=== PATIENT | female | born 1985 | race Caucasian/White ===

== ENCOUNTER 2017-02-03 11:36 | Emergency (ER) | payer SELFPAY ==
[2017-02-03] MEDS ORDERED: Sodium Chloride 0.9% 10 ML Syringe FLUSH PRN (12:20)
[2017-02-03] MEDS ORDERED: Sodium Chloride 0.9% 1,000 ML IV ONE ×2 (12:20→13:36)
[2017-02-03] MEDS ORDERED: Sodium Chloride 0.9% 2.5 ML Syringe FLUSH PRN (12:20)
[2017-02-03] MEDS ORDERED: Famotidine 20 MG/2 ML SDV IVPUSH ONE (12:20)
[2017-02-03] MEDS ORDERED: Ondansetron 4 MG/2 ML SDV IVPUSH ONE (12:20)
--- NOTE | 2017-02-03 12:22 | EDM.PDOC ---
ED HPI GENERAL MEDICAL PROBLEM - General Chief Complaint: General Stated Complaint: VOMITING() Time Seen by Provider: 02/03/17 12:13 - History of Present Illness INITIAL COMMENTS - FREE TEXT/NARRATIVE: HISTORY AND PHYSICAL: History of present illness: The patient is a 31-year-old female who is a 2 para 1000 who had a demise and whose LMP was 8/16 and presents at an estimated gestational age of 7 weeks 2 days with nausea and vomiting for the last over 2 weeks and with some diarrhea over the last 2 days. She has abdominal pain mostly from the vomiting but is not pelvic pain and she has had no vaginal bleeding. He said she 's been trying sips of fluids in small bites and is not sure if she's keeping anything down. She went for an initial evaluation at [facility] and was diagnosed with the end of December and has appointment with them on February 16. She has no GI or history and has no flank pain or urinary complaints. Patient says she feels very thirsty but cannot keep anything down. Review of systems: As per history of present illness and below otherwise all systems reviewed and negative. Past medical history: As per history of present illness and as reviewed below otherwise noncontributory. Surgical history: As per history of present illness and as reviewed below otherwise noncontributory. Social history: No reported history of drug or alcohol abuse. Family history: As per history of present illness and as reviewed below otherwise noncontributory. Physical exam: Gen.: Well-developed mildly overweight female who is nontoxic and vital signs have been reviewed by me. She is nontoxic appearing HEENT: Atraumatic, normocephalic, pupils reactive, negative for conjunctival pallor or scleral icterus, mucous membranes tacky, throat clear, neck supple, nontender, trachea midline. Lungs: Clear to auscultation, breath sounds equal bilaterally, chest nontender. Heart: S1S2, regular rate and rhythm no overt murmurs Abdomen: Soft, nondistended, nontender. NABS Negative for costovertebral tenderness. Pelvis: Stable nontender. Genitourinary: Deferred. Rectal: Deferred. Extremities: Atraumatic, negative for cords or calf pain. Neurovascular unremarkable. Neuro: Awake, alert, oriented. Cranial nerves II through XII unremarkable. Cerebellum unremarkable. Motor and sensory unremarkable throughout. Exam nonfocal. Diagnostics: CBC CMP UA magnesium level serum quantitative hCG Therapeutics: IV fluids Pepcid Zofran 1345: Patient is feeling better and I've given her a popsicle. We will hang another liter of IV fluids and once I see the quantitative hCG I will discuss disposition home with medications with her OB Cassandra 1431: Case was discussed with the OB maintenance mechanic telephone for [facility], Dr. Harper; she is aware of the case and recommend stay clean just and if that is not working Zofran for home. Patient is aware of dietary restrictions and need to call and check in on Monday and reasons to return to the ED Impression: Hyperemesis gravidarum Definitive disposition and diagnosis as appropriate pending reevaluation and review of above. 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 ED EXAM, GENERAL - Physical Exam Exam: See Below (See dictation) Course - Vital Signs Last Recorded V/S: Last Vital Signs Temp 36.7 C 02/03/17 13:00 Pulse 79 02/03/17 13:42 Resp 18 02/03/17 13:00 BP 117/59 L 02/03/17 13:42 Pulse Ox 98 02/03/17 13:00 - Orders/Labs/Meds Orders: Active Orders 24 hr Category Date Time Status Sodium Chloride 0.9% [Saline Flush] Med 02/03/17 12:20 Active 10 ml FLUSH ASDIRECTED PRN Sodium Chloride 0.9% [Saline Flush] Med 02/03/17 12:20 Active 2.5 ml FLUSH ASDIRECTED PRN Saline Lock Insert [OM.PC] Stat Oth 02/03/17 12:18 Ordered Medication Orders Sodium Chloride (Saline Flush) 10 ml FLUSH ASDIRECTED PRN PRN Reason: Keep Vein Open Last Admin: 02/03/17 12:35 Dose: 10 ml Sodium Chloride (Saline Flush) 2.5 ml FLUSH ASDIRECTED PRN PRN Reason: Keep Vein Open Last Admin: 02/03/17 12:36 Dose: 2.5 ml Labs: Laboratory Tests 02/03/17 02/03/17 02/03/17 Range/Units 12:35 12:35 12:55 WBC 13.23 H (4.0-11.0) K/uL RBC 4.49 (4.30-5.90) M/uL Hgb 13.7 (12.0-16.0) g/dL Hct 40.0 (36.0-46.0) % MCV 89.1 (80.0-98.0) fL MCH 30.5 (27.0-32.0) pg MCHC 34.3 (31.0-37.0) g/dL RDW Std Deviation 41.3 (28.0-62.0) fl RDW Coeff of Russel 13 (11.0-15.0) % Plt Count 264 (150-400) K/uL MPV 10.20 (7.40-12.00) fL Neut % (Auto) 95.3 H (48.0-80.0) % Lymph % (Auto) 2.8 L (16.0-40.0) % [place] % (Auto) 1.7 (0.0-15.0) % Eos % (Auto) 0.1 (0.0-7.0) % Baso % (Auto) 0.1 (0.0-1.5) % Neut # (Auto) 12.6 H (1.4-5.7) K/uL Lymph # (Auto) 0.4 L (0.6-2.4) K/uL [place] # (Auto) 0.2 (0.0-0.8) K/uL Eos # (Auto) 0.0 (0.0-0.7) K/uL Baso # (Auto) 0.0 (0.0-0.1) K/uL Nucleated RBC % 0.0 /100WBC Nucleated RBCs # 0 K/uL Sodium 137 (136-146) mmol/L Potassium 3.6 (3.5-5.1) mmol/L Chloride 105 (98-110) mmol/L Carbon Dioxide 22 (21-31) mmol/L BUN 9 (6.0-23.0) mg/dL Creatinine 0.6 (0.6-1.5) mg/dL Est Cr Clr Drug Dosing 118.39 mL/min Estimated GFR (MDRD) > 60.0 ml/min Glucose 101 (60-110) mg/dL Calcium 8.8 (8.8-10.8) mg/dL Magnesium 1.2 L (1.5-2.3) mEq/L Total Bilirubin 0.8 (0.1-1.5) mg/dL AST 17 (5-40) IU/L ALT 31 (8-54) IU/L Alkaline Phosphatase 58 (40-150) Total Protein 6.9 (6.0-8.0) g/dL Albumin 3.7 (3.5-5.0) g/dL Globulin 3.2 (2.0-3.5) g/dL Albumin/Globulin Ratio 1.2 L (1.3-2.8) HCG, Quant 62698.0 mIU/mL Urine Color DARK YELLOW Urine Appearance CLEAR Urine pH 6.5 (5.0-8.0) Ur Specific [place] 1.025 (1.001-1.035) Urine Protein TRACE (NEGATIVE) mg/dL Urine Glucose (UA) NEGATIVE (NEGATIVE) mg/dL Urine Ketones >=80 (NEGATIVE) mg/dL Urine Occult Blood TRACE-INTACT (NEGATIVE) Urine Nitrite NEGATIVE (NEGATIVE) Urine Bilirubin SMALL H (NEGATIVE) Urine Ictotest NEGATIVE Urine Urobilinogen 0.2 (<2.0) EU/dL Ur Leukocyte Esterase NEGATIVE (NEGATIVE) Urine RBC 5-7 (0-2/HPF) Urine WBC 0-1 (0-5/HPF) Ur Epithelial Cells FEW (NONE-FEW) Urine Bacteria RARE (NEGATIVE) Urine Mucus LIGHT (NONE-MOD) Meds: Medications Generic Name Dose Route Start Last Admin Trade Name Freq PRN Reason Stop Dose Admin Sodium Chloride 10 ml 02/03/17 12:20 02/03/17 12:35 Saline Flush FLUSH 10 ml ASDIRECTED PRN Administration Keep Vein Open Sodium Chloride 2.5 ml 02/03/17 12:20 02/03/17 12:36 Saline Flush FLUSH 2.5 ml ASDIRECTED PRN Administration Keep Vein Open Discontinued Medications Generic Name Dose Route Start Last Admin Trade Name Freq PRN Reason Stop Dose Admin Famotidine 20 mg 02/03/17 12:20 02/03/17 12:44 Pepcid IVPUSH 02/03/17 12:21 20 mg ONETIME ONE Administration Sodium Chloride 1,000 mls @ 999 mls/hr 02/03/17 12:20 02/03/17 12:40 Normal Saline IV 02/03/17 13:20 999 mls/hr STAT ONE Administration Sodium Chloride 1,000 mls @ 999 mls/hr 02/03/17 13:36 02/03/17 13:40 Normal Saline IV 02/03/17 14:36 999 mls/hr STAT ONE Administration Ondansetron HCl 4 mg 02/03/17 12:20 02/03/17 12:46 Zofran IVPUSH 02/03/17 12:21 4 mg ONETIME ONE Administration Departure - Departure Time of Disposition: 14:38 Disposition: Home, Self-Care 01 Condition: Fair Clinical Impression: Hyperemesis gravidarum - Discharge Information Referrals: PCP,None [Primary Care Provider] - Forms: ED Department Discharge Additional Instructions: The following information is given to patients seen in the emergency department who are being discharged to home. This information is to outline your options for follow-up care. We provide all patients seen in our emergency department with a follow-up referral. The need for follow-up, as well as the timing and circumstances, are variable depending upon the specifics of your emergency department visit. If you don't have a primary care physician on staff, we will provide you with a referral. We always advise you to contact your personal physician following an emergency department visit to inform them of the circumstance of the visit and for follow-up with them and/or the need for any referrals to a consulting specialist. The emergency department will also refer you to a specialist when appropriate. This referral assures that you have the opportunity for followup care with a specialist. All of these measure are taken in an effort to provide you with optimal care, which includes your followup. Under all circumstances we always encourage you to contact your private physician who remains a resource for coordinating your care. When calling for followup care, please make the office aware that this follow-up is from your recent emergency room visit. If for any reason you are refused follow-up, please contact the [facility] emergency department at and ask to speak to the emergency department charge nurse. [address] [address] Eat small bites of crackers and toast as well as sips of fluids as we discussed. Please use Diglegis for nausea and vomiting and move onto the Zofran if you continue to vomit. Please call and discuss your status with the OB M.D. on Monday and return to ER as needed and as discussed - My Orders Last 24 Hours: My Active Orders 02/03/17 12:18 Saline Lock Insert [OM.PC] Stat 02/03/17 12:20 Sodium Chloride 0.9% [Saline Flush] 10 ml FLUSH ASDIRECTED PRN Sodium Chloride 0.9% [Saline Flush] 2.5 ml FLUSH ASDIRECTED PRN - Assessment/Plan Last 24 Hours: My Active Orders 02/03/17 12:18 Saline Lock Insert [OM.PC] Stat 02/03/17 12:20 Sodium Chloride 0.9% [Saline Flush] 10 ml FLUSH ASDIRECTED PRN Sodium Chloride 0.9% [Saline Flush] 2.5 ml FLUSH ASDIRECTED PRN
[2017-02-03 13:20] LABS: CHLORIDE,CL 105 mmol/L (98-110); SODIUM,NA 137 mmol/L (136-146)
[2017-02-03 14:56] VITALS: BP 135/61
== END 2017-02-03 14:51 | disposition home or self-care (01) ==
LOC: MW.ED 11:36
DX: O21.0 Mild hyperemesis gravidarum (principal); O99.331 Smoking (tobacco) complicating pregnancy, first trimester; F17.210 Nicotine dependence, cigarettes, uncomplicated; Z88.6 Allergy status to analgesic agent; Z88.5 Allergy status to narcotic agent; Z3A.01 Less than 8 weeks gestation of pregnancy
CPT/HCPCS: 36415; 80053; 81001; 83735; 84702; 85025; 96361; 96374; 96375; 99284; J2405; J7040; 99283

== ENCOUNTER 2017-02-22 20:06 | Emergency (ER) | payer SELFPAY ==
[2017-02-22] MEDS ORDERED: Sodium Chloride 0.9% 1,000 ML IV ONE (20:19)
[2017-02-22] MEDS ORDERED: Ondansetron 4 MG/2 ML SDV IVPUSH ONE (20:19)
--- NOTE | 2017-02-22 20:22 | EDM.PDOC ---
ED HPI GENERAL MEDICAL PROBLEM - General Chief Complaint: Gastrointestinal Problem Stated Complaint: 10 WEEKS/VOMITING/DIARRHEA Time Seen by Provider: 02/22/17 20:16 - History of Present Illness INITIAL COMMENTS - FREE TEXT/NARRATIVE: HISTORY AND PHYSICAL: History of present illness: Patient 31-year-old female presents with history of ten-week intrauterine and hyperemesis patient states she's had a similar episode 1 week prior but that today's episode which she's had intractable vomiting is also some associated diarrhea she denies vaginal bleeding and abdominal pain vaginal discharge or urinary symptoms or other complaints she's has concerns of dehydration. Review of systems: As per history of present illness and below otherwise all systems reviewed and negative. Past medical history: As per history of present illness and as reviewed below otherwise noncontributory. Surgical history: As per history of present illness and as reviewed below otherwise noncontributory. Social history: No reported history of drug or alcohol abuse. Family history: As per history of present illness and as reviewed below otherwise noncontributory. Physical exam: HEENT: Atraumatic, normocephalic, pupils reactive, negative for conjunctival pallor or scleral icterus, mucous membranes dry throat clear, neck supple, nontender, trachea midline. Lungs: Clear to auscultation, breath sounds equal bilaterally, chest nontender. Heart: S1S2, regular, negative for clicks, rubs, or JVD. Abdomen: Soft, nondistended, nontender. Negative for masses or hepatosplenomegaly. Negative for costovertebral tenderness. Pelvis: Stable nontender. Genitourinary: Deferred. Rectal: Deferred. Extremities: Atraumatic, negative for cords or calf pain. Neurovascular unremarkable. Neuro: Awake, alert, oriented. Cranial nerves II through XII unremarkable. Cerebellum unremarkable. Motor and sensory unremarkable throughout. Exam nonfocal. Diagnostics: CBC CMP amylase lipase stool for C&S O&P C. difficile UA Therapeutics: Normal saline 1 L bolus Zofran 4 mg IV Impression: #1 first trimester #2 hyperemesis #3 diarrhea #4 dehydration Definitive disposition and diagnosis as appropriate pending reevaluation and review of above. 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 ED EXAM, GENERAL - Physical Exam Exam: See Below (See dictation) Course - Vital Signs Last Recorded V/S: Last Vital Signs Temp 36.5 C 02/22/17 20:25 Pulse 88 02/22/17 20:25 Resp 18 02/22/17 20:25 BP 105/66 02/22/17 20:25 Pulse Ox 97 02/22/17 20:25 - Orders/Labs/Meds Orders: Active Orders 24 hr Category Date Time Status CDIFF TOX A+B [OP] Stat Lab 02/22/17 20:19 Uncollected CULTURE STOOL + CAMPY+SHIGATOX [RM] Stat Lab 02/22/17 20:19 Uncollected UA W/MICROSCOPIC [URIN] Stat Lab 02/22/17 21:20 Received Labs: Laboratory Tests 02/22/17 02/22/17 Range/Units 20:29 20:29 WBC 11.90 H (4.0-11.0) K/uL RBC 4.16 L (4.30-5.90) M/uL Hgb 12.8 (12.0-16.0) g/dL Hct 36.9 (36.0-46.0) % MCV 88.7 (80.0-98.0) fL MCH 30.8 (27.0-32.0) pg MCHC 34.7 (31.0-37.0) g/dL RDW Std Deviation 41.3 (28.0-62.0) fl RDW Coeff of Russel 13 (11.0-15.0) % Plt Count 238 (150-400) K/uL MPV 10.10 (7.40-12.00) fL Neut % (Auto) 89.8 H (48.0-80.0) % Lymph % (Auto) 6.0 L (16.0-40.0) % [place] % (Auto) 4.0 (0.0-15.0) % Eos % (Auto) 0.1 (0.0-7.0) % Baso % (Auto) 0.1 (0.0-1.5) % Neut # (Auto) 10.7 H (1.4-5.7) K/uL Lymph # (Auto) 0.7 (0.6-2.4) K/uL [place] # (Auto) 0.5 (0.0-0.8) K/uL Eos # (Auto) 0.0 (0.0-0.7) K/uL Baso # (Auto) 0.0 (0.0-0.1) K/uL Nucleated RBC % 0.0 /100WBC Nucleated RBCs # 0 K/uL Sodium 133 L (136-146) mmol/L Potassium 3.0 L (3.5-5.1) mmol/L Chloride 104 (98-110) mmol/L Carbon Dioxide 22 (21-31) mmol/L BUN 6 (6.0-23.0) mg/dL Creatinine 0.6 (0.6-1.5) mg/dL Est Cr Clr Drug Dosing 118.39 mL/min Estimated GFR (MDRD) > 60.0 ml/min Glucose 94 (60-110) mg/dL Calcium 8.3 L (8.8-10.8) mg/dL Total Bilirubin 0.7 (0.1-1.5) mg/dL AST 13 (5-40) IU/L ALT 19 (8-54) IU/L Alkaline Phosphatase 50 (40-150) Total Protein 6.3 (6.0-8.0) g/dL Albumin 3.4 L (3.5-5.0) g/dL Globulin 2.9 (2.0-3.5) g/dL Albumin/Globulin Ratio 1.2 L (1.3-2.8) Amylase 28 (10-90) U/L Lipase 9 (7-80) U/L Meds: Medications Discontinued Medications Generic Name Dose Route Start Last Admin Trade Name Anila PRN Reason Stop Dose Admin Sodium Chloride 1,000 mls @ 999 mls/hr 02/22/17 20:19 02/22/17 20:38 Normal Saline IV 02/22/17 21:19 999 mls/hr STAT ONE Administration Ondansetron HCl 4 mg 02/22/17 20:19 02/22/17 20:39 Zofran IVPUSH 02/22/17 20:20 4 mg ONETIME ONE Administration Potassium Chloride 40 meq 02/22/17 21:40 Klor-Con M20 PO 02/22/17 21:41 ONETIME ONE Departure - Departure Time of Disposition: 21:43 Disposition: Home, Self-Care 01 Condition: Good Clinical Impression: Gastroenteritis, Dehydration, First trimester , Hyperemesis arising during , Hypokalemia - Discharge Information Referrals: PCP,None [Primary Care Provider] - Forms: ED Department Discharge Additional Instructions: The following information is given to patients seen in the emergency department who are being discharged to home. This information is to outline your options for follow-up care. We provide all patients seen in our emergency department with a follow-up referral. The need for follow-up, as well as the timing and circumstances, are variable depending upon the specifics of your emergency department visit. If you don't have a primary care physician on staff, we will provide you with a referral. We always advise you to contact your personal physician following an emergency department visit to inform them of the circumstance of the visit and for follow-up with them and/or the need for any referrals to a consulting specialist. The emergency department will also refer you to a specialist when appropriate. This referral assures that you have the opportunity for followup care with a specialist. All of these measure are taken in an effort to provide you with optimal care, which includes your followup. Under all circumstances we always encourage you to contact your private physician who remains a resource for coordinating your care. When calling for followup care, please make the office aware that this follow-up is from your recent emergency room visit. If for any reason you are refused follow-up, please contact the [facility] emergency department at and asked to speak to the emergency department charge nurse Push fluids clear liquids as directed avoid dairy 72 hours banana twice daily as discussed follow-up DIRECTOR LONG TERM CARE 24-48 hours and return as needed as discussed[] - My Orders Last 24 Hours: My Active Orders 02/22/17 20:19 CDIFF TOX A+B [OP] Stat CULTURE STOOL + CAMPY+SHIGATOX [RM] Stat 02/22/17 21:20 UA W/MICROSCOPIC [URIN] Stat - Assessment/Plan Last 24 Hours: My Active Orders 02/22/17 20:19 CDIFF TOX A+B [OP] Stat CULTURE STOOL + CAMPY+SHIGATOX [RM] Stat 02/22/17 21:20 UA W/MICROSCOPIC [URIN] Stat
[2017-02-22 20:55] LABS: CHLORIDE,CL 104 mmol/L (98-110); SODIUM,NA 133 mmol/L (136-146)
[2017-02-22] MEDS ORDERED: Potassium Chloride 20 MEQ Tab.ER PO ONE (21:40)
[2017-02-22 22:02] VITALS: BP 119/56
== END 2017-02-22 22:00 | disposition home or self-care (01) ==
LOC: MW.ED 20:06
DX: O21.1 Hyperemesis gravidarum with metabolic disturbance (principal); O99.611 Diseases of the digestive system complicating pregnancy, first trimester; K52.9 Noninfective gastroenteritis and colitis, unspecified; O99.331 Smoking (tobacco) complicating pregnancy, first trimester; F17.210 Nicotine dependence, cigarettes, uncomplicated; Z3A.10 10 weeks gestation of pregnancy
CPT/HCPCS: 36415; 80053; 81001; 82150; 83690; 85025; 96361; 96374; 99283; A9270; J2405; J7040; 99282

== ENCOUNTER 2017-08-23 09:38 | Inpatient (IN) | payer MEDICAID ==
[2017-08-23] MEDS ORDERED: Sodium Chloride 0.9% 2.5 ML Syringe FLUSH PRN (10:35)
[2017-08-23] MEDS ORDERED: Sodium Chloride 0.9% 10 ML Syringe FLUSH PRN (10:35)
[2017-08-23] MEDS ORDERED: Oxytocin/0.9 % Sodium Chloride 30 UNIT/500 ML BAG IV SCH (10:45)
[2017-08-23] MEDS ORDERED: Citric Acid/Sodium Citrate Solution 30 ML Cup PO SCH (10:45)
[2017-08-23] MEDS: Lactated Ringers 1,000 ML IV SCH ×2 (11:01→11:38)
--- NOTE | 2017-08-23 11:13 | PCM.LDHP ---
L&D History of Present Illness - General Date of Service: 08/23/17 Admit Problem/Dx: Patient Status Order with Admit Dx/Problem 08/23/17 10:36 Patient Status [ADT] Routine Admission Diagnosis/Problem Admission Diagnosis/Problem - planned Source of Information: Patient History Limitations: Reports: No Limitations - History of Present Illness Improves with: Reports: None Worsens with: Reports: None Associated Symptoms: Reports: N - Related Data Allergies/Adverse Reactions: Allergies Allergy/AdvReac Type Severity Reaction Status Date / Time acetaminophen [From Vicodin] Allergy Itching Verified 08/22/17 11:48 hydrocodone [From Vicodin] Allergy Itching Verified 08/22/17 11:48 Home Medications: Home Meds Vits #93/Iron Fum/FA [ Formula Tablet] 1 cap PO DAILY 02/03/17 [History] risperiDONE [Risperdal] 0.5 mg PO BID 02/03/17 [History] Past Medical History HEENT History: Reports: None Respiratory History: Reports: None Gastrointestinal History: Reports: GERD Genitourinary History: Reports: None 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: , Other (See Below) Other OB/BYN History: Musculoskeletal History: Reports: Arthritis, Back Pain, Chronic Psychiatric History: Reports: Anxiety, Bipolar, Depression Endocrine/Metabolic History: Reports: Obesity/BMI 30+ - Past Surgical History Head Surgeries/Procedures: Reports: None HEENT Surgical History: Reports: Tonsillectomy Female Surgical History: Reports: Section Social & Family History - Family History Family Medical History: Noncontributory - Tobacco Use Smoking Status *Q: Former Smoker Years of Tobacco use: 10 Packs/Tins Daily: 0.3 Used Tobacco, but Quit: Yes Month/Year Tobacco Last Used: quit 4 weeks ago Second Hand Smoke Exposure: No - Caffeine Use Caffeine Use: Reports: Coffee - Recreational Drug Use Recreational Drug Use: Yes Drug Use in Last 12 Months: Yes Recreational Drug Type: Reports: Marijuana/Hashish Recreational Drug Use Frequency: Not Used In Over 2 Months H&P Review of Systems - Review of Systems: Review Of Systems: See Below General: Reports: No Symptoms HEENT: Reports: No Symptoms Pulmonary: Reports: No Symptoms Cardiovascular: Reports: No Symptoms Gastrointestinal: Reports: No Symptoms Genitourinary: Reports: No Symptoms Musculoskeletal: Reports: No Symptoms Skin: Reports: No Symptoms Psychiatric: Reports: No Symptoms Neurological: Reports: No Symptoms Hematologic/Lymphatic: Reports: No Symptoms Immunologic: Reports: No Symptoms L&D Exam - Exam Exam: See Below - Vital Signs Weight: 104.78 kg - OB Specific Fundal Height In cm: 37 Contraction Intensity: Mild Movement: Active Heart Tones: Present Presentation: Vertex - Exam General: Alert, Oriented HEENT: PERRLA, Conjunctiva Clear, EACs Clear, EOMI, Hearing Intact, Mucosa Moist & [place], Nares Patent, Normal Nasal Septum, Posterior Pharynx Clear, TMs Clear Neck: Supple, Trachea Midline Lungs: Clear to Auscultation, Normal Respiratory Effort Cardiovascular: Regular Rate, Regular Rhythm GI/Abdominal Exam: Normal Bowel Sounds, Soft, Non-Tender, No Organomegaly, No Distention, No Abnormal Bruit, No Mass, Pelvis Stable Rectal Exam: Normal Exam, Normal Rectal Tone Genitourinary: Normal external exam, Normal bimanual exam, Normal speculum exam Back Exam: Normal Inspection, Full Range of Motion Extremities: Normal Inspection, Normal Range of Motion, Non-Tender, No Pedal Edema, Normal Capillary Refill Skin: Warm, Dry, Intact Neurological: Cranial Nerves Intact, Reflexes Equal Bilateral Psychiatric: Alert, Normal Affect, Normal Mood Problem List Initiated/Reviewed/Updated: Yes Orders Last 24hrs: Active Orders 24 hr Category Date Time Status Patient Status [ADT] Routine ADT 08/23/17 10:36 Active Notify Provider Vital Signs [RC] PRN Care 08/23/17 10:37 Active Procedure Site Prep Instruct [RC] ASDIRECTED Care 08/23/17 10:36 Active Up ad Sharmin [RC] ASDIRECTED Care 08/23/17 10:36 Active Verify Patient Consent Obtain [RC] ASDIRECTED Care 08/23/17 10:36 Active Vital Signs [RC] PER UNIT ROUTINE Care 08/23/17 10:36 Active CBC W/O DIFF,HEMOGRAM [HEME] Routine Lab 08/23/17 10:55 Received TYPE AND SCREEN [BBK] Routine Lab 08/23/17 10:55 Received Citric Acid/Sodium Citrate [Bicitra Solution] Med 08/23/17 10:45 Active 30 ml PO .ONCE Lactated Ringers [Ringers, Lactated] 1,000 ml Med 08/23/17 10:45 Active IV .BOLUS Oxytocin/0.9 % Sodium Chloride [Oxytocin 30 Unit/500 ML Med 08/23/17 10:45 Active -NS] 30 unit in 500 ml IV TITRATE Sodium Chloride 0.9% [Saline Flush] Med 08/23/17 10:35 Active 10 ml FLUSH ASDIRECTED PRN Sodium Chloride 0.9% [Saline Flush] Med 08/23/17 10:35 Active 2.5 ml FLUSH ASDIRECTED PRN ceFAZolin [Ancef] 2 gm Med 08/23/17 11:45 Active Premix Bag 1 bag IV ONETIME Peripheral IV Insertion Adult [OM.PC] Routine Oth 08/23/17 10:36 Ordered Schedule Procedure [COMM] Per Unit Routine Oth 08/23/17 10:36 Ordered Resuscitation Status Routine Resus Stat 08/23/17 10:35 Ordered Medication Orders Citric Acid/Sodium Citrate (Bicitra Solution) 30 ml PO .ONCE KATI Cefazolin Sodium/Dextrose 2 gm (/ Premix) 50 mls @ 100 mls/hr IV ONETIME ONE Stop: 08/23/17 12:14 Lactated Ringer's (Ringers, Lactated) 1,000 mls @ 500 mls/hr IV .BOLUS KATI Last Admin: 08/23/17 11:01 Dose: 500 mls/hr Oxytocin/Sodium Chloride (Oxytocin 30 Unit/500 Ml-Ns) 30 unit in 500 mls @ 250 mls/hr IV TITRATE KATI Sodium Chloride (Saline Flush) 10 ml FLUSH ASDIRECTED PRN PRN Reason: Keep Vein Open Sodium Chloride (Saline Flush) 2.5 ml FLUSH ASDIRECTED PRN PRN Reason: Keep Vein Open Assessment/Plan Comment:: Tongue patient (39 Wks) is admitted for elective repeat section
[2017-08-23] MEDS ORDERED: Oxytocin/0.9 % Sodium Chloride 30 UNIT/500 ML BAG ONE (11:23)
[2017-08-23] MEDS ORDERED: ePHEDrine 50 MG/ML SDV ONE (11:35)
[2017-08-23] MEDS ORDERED: ceFAZolin/Dextrose,Iso-Osmotic 2 GM/50 ML Duplex Bag IV ONE (11:35)
[2017-08-23] MEDS ORDERED: Ondansetron 4 MG/2 ML SDV ONE (11:35)
[2017-08-23] MEDS ORDERED: Morphine PF 1 MG/ML Amp ONE (11:36)
--- NOTE | 2017-08-23 11:39 | PCM.PREANE ---
Preanesthetic Assessment - Anesthesia/Transfusion/Family Hx Anesthesia History: Prior Anesthesia Without Reaction Family History of Anesthesia Reaction: No Transfusion History: No Prior Transfusion(s) - Review of Systems General: No Symptoms Pulmonary: No Symptoms Cardiovascular: No Symptoms Gastrointestinal: No Symptoms Neurological: No Symptoms Other: Reports: None - Physical Assessment NPO Status Date: 08/22/17 Height: 1.63 m Weight: 104.78 kg ASA Class: 2 Mental Status: Alert & Oriented x3 Airway Class: Mallampati = 2 Dentition: Reports: Normal Dentition ROM/Head Extension: Full Lungs: Clear to Auscultation, Normal Respiratory Effort Cardiovascular: Regular Rate, Regular Rhythm - Lab Values: Laboratory Last Values WBC 12.10 K/uL (4.0-11.0) H 08/23/17 10:55 RBC 4.25 M/uL (4.30-5.90) L 08/23/17 10:55 Hgb 12.9 g/dL (12.0-16.0) 08/23/17 10:55 Hct 37.8 % (36.0-46.0) 08/23/17 10:55 MCV 88.9 fL (80.0-98.0) 08/23/17 10:55 MCH 30.4 pg (27.0-32.0) 08/23/17 10:55 MCHC 34.1 g/dL (31.0-37.0) 08/23/17 10:55 RDW Std Deviation 41.2 fl (28.0-62.0) 08/23/17 10:55 RDW Coeff of Russel 13 % (11.0-15.0) 08/23/17 10:55 Plt Count 274 K/uL (150-400) 08/23/17 10:55 MPV 11.10 fL (7.40-12.00) 08/23/17 10:55 Nucleated RBC % 0.0 /100WBC 08/23/17 10:55 Nucleated RBCs # 0 K/uL 08/23/17 10:55 - Allergies Allergies/Adverse Reactions: Allergies Allergy/AdvReac Type Severity Reaction Status Date / Time acetaminophen [From Vicodin] Allergy Itching Verified 08/22/17 11:48 hydrocodone [From Vicodin] Allergy Itching Verified 08/22/17 11:48 - Anesthesia Plan Pre-Op Medication Ordered: Antacids - Acknowledgements Anesthesia Type Planned: Spinal Pt an Appropriate Candidate for the Planned Anesthesia: Yes Alternatives and Risks of Anesthesia Discussed w Pt/Guardian: Yes Pt/Guardian Understands and Agrees with Anesthesia Plan: Yes PreAnesthesia Questionnaire HEENT History: Reports: None Respiratory History: Reports: None Gastrointestinal History: Reports: GERD Genitourinary History: Reports: None FINANCIAL REP History: Reports: , Other (See Below) Other OB/BYN History: Musculoskeletal History: Reports: Arthritis, Back Pain, Chronic Psychiatric History: Reports: Anxiety, Bipolar, Depression Endocrine/Metabolic History: Reports: Obesity/BMI 30+ - Infectious Disease History Infectious Disease History: Reports: Chicken Pox - Past Surgical History Head Surgeries/Procedures: Reports: None HEENT Surgical History: Reports: Tonsillectomy Female Surgical History: Reports: Section - SUBSTANCE USE Smoking Status *Q: Current Every Day Smoker Tobacco Use Within Last Twelve Months: Cigarettes Second Hand Smoke Exposure: Yes Recreational Drug Use History: Yes Recreational Drug Type: Reports: Marijuana/Hashish Recreational Drug Last Use: 06/20/2017 - HOME MEDS Home Medications: Home Meds Vits #93/Iron Fum/FA [ Formula Tablet] 1 cap PO DAILY 02/03/17 [History] risperiDONE [Risperdal] 0.5 mg PO BID 02/03/17 [History] - CURRENT (IN HOUSE) MEDS Current Meds: Current Medications Citric Acid/Sodium Citrate (Bicitra Solution) 30 ml PO .ONCE KATI Cefazolin Sodium/Dextrose 2 gm (/ Premix) 50 mls @ 100 mls/hr IV ONETIME ONE Stop: 08/23/17 12:14 Lactated Ringer's (Ringers, Lactated) 1,000 mls @ 500 mls/hr IV .BOLUS KATI Last Admin: 08/23/17 11:38 Dose: 500 mls/hr Oxytocin/Sodium Chloride (Oxytocin 30 Unit/500 Ml-Ns) 30 unit in 500 mls @ 250 mls/hr IV TITRATE KATI Sodium Chloride (Saline Flush) 10 ml FLUSH ASDIRECTED PRN PRN Reason: Keep Vein Open Sodium Chloride (Saline Flush) 2.5 ml FLUSH ASDIRECTED PRN PRN Reason: Keep Vein Open Discontinued Medications Cefazolin Sodium/Dextrose (Ancef) Confirm Administered Dose 2 gm IV .STK-MED ONE Stop: 08/23/17 11:36 Ephedrine Sulfate (Ephedrine Sulfate) Confirm Administered Dose 50 mg .ROUTE .STK-MED ONE Stop: 08/23/17 11:36 Oxytocin/Sodium Chloride (Oxytocin 30 Unit/500 Ml-Ns) Confirm Administered Dose 30 unit in 500 mls @ as directed .ROUTE .STK-MED ONE Stop: 08/23/17 11:24 Ondansetron HCl (Zofran) Confirm Administered Dose 4 mg .ROUTE .STK-MED ONE Stop: 08/23/17 11:36
[2017-08-23] MEDS ORDERED: Octyl 2-Cyanoacrylate 1 Tube ONE (11:42)
[2017-08-23] MEDS ORDERED: ceFAZolin 2 GM in Premix Bag 1 BAG IV ONE (11:45)
[2017-08-23] MEDS ORDERED: Phenylephrine/Normal Saline 100 MCG/ML 10 ML Syringe ONE (12:22)
[2017-08-23] MEDS ORDERED: fentaNYL 100 MCG/2 ML SDV IVPUSH PRN (12:48)
[2017-08-23] MEDS ORDERED: Acetaminophen/oxyCODONE 325-5 MG Tab PO PRN ×2 (12:48→12:59)
[2017-08-23] MEDS ORDERED: fentaNYL 100 MCG/2 ML SDV ONE (12:57)
[2017-08-23] MEDS ORDERED: diphenhydrAMINE 50 MG/ML SDV IVPUSH PRN (12:59)
[2017-08-23] MEDS ORDERED: Lanolin 100% Cream 7 GM Tube TOP PRN (12:59)
[2017-08-23] MEDS ORDERED: Bisacodyl 10 MG Supp RECTAL PRN (12:59)
[2017-08-23] MEDS ORDERED: Ondansetron 4 MG/2 ML SDV IV PRN (12:59)
[2017-08-23] MEDS ORDERED: Lactated Ringers 1,000 ML IV SCH (13:00)
--- NOTE | 2017-08-23 13:03 | PCM.OPNOTE ---
- General Post-Op/Procedure Note Date of Surgery/Procedure: 08/23/17 Operative Procedure(s): Repeat C/Section Pre Op Diagnosis: IUP 39+ wks previous C/section Post-Op Diagnosis: Same Anesthesia Technique: Spinal Primary Surgeon: Vito Ortiz Concert Promoter: Eveline Rodrigues EBL in mLs: 700 Complications: None Condition: Good
[2017-08-23] MEDS: Ketorolac 30 MG/ML SDV IVPUSH SCH ×2 (13:36→19:51)
--- NOTE | 2017-08-23 13:43 | PCM.POSTAN ---
POST ANESTHESIA ASSESSMENT - MENTAL STATUS Mental Status: Alert, Oriented - VITAL SIGNS Blood Pressure: 113/59 - RESPIRATORY Respiratory Status: Respiratory Rate WNL, Airway Patent, O2 Saturation Stable - CARDIOVASCULAR CV Status: Pulse Rate WNL, Blood Pressure Stable - GASTROINTESTINAL GI Status: No Symptoms - PAIN Pain Score: 0 (some carpal tunnel syndrome - preexisting) - POST OP HYDRATION Hydration Status: Adequate & Stable - OBSERVATIONS Free Text/Narrative:: Pt stable for discharge to OB
[2017-08-23] MEDS: Nalbuphine 10 MG/1 ML Vial IVPUSH PRN ×2 (14:13→18:10)
[2017-08-23] MEDS: Docusate Sodium 100 MG Cap PO SCH (22:20)
[2017-08-24] MEDS: Nalbuphine 10 MG/1 ML Vial IVPUSH PRN ×2 (01:17→07:38)
[2017-08-24] MEDS: Ketorolac 30 MG/ML SDV IVPUSH SCH ×3 (01:44→14:15)
--- NOTE | 2017-08-24 08:26 | PCM.PNPP ---
- General Info Date of Service: 08/24/17 Admission Dx/Problem (Free Text): Patient Status Order with Admit Dx/Problem 08/23/17 10:36 Patient Status [ADT] Routine Admission Diagnosis/Problem Admission Diagnosis/Problem - planned Functional Status: Reports: Pain Controlled, Tolerating Diet, Ambulating, Urinating - Review of Systems General: Reports: No Symptoms HEENT: Reports: No Symptoms Pulmonary: Reports: No Symptoms Cardiovascular: Reports: No Symptoms Gastrointestinal: Reports: No Symptoms Genitourinary: Reports: No Symptoms Musculoskeletal: Reports: No Symptoms Skin: Reports: No Symptoms Neurological: Reports: No Symptoms Psychiatric: Reports: No Symptoms - General Info Date of Service: 08/24/17 - Patient Data Vital Signs - Most Recent: Last Vital Signs Temp 36.9 C 08/24/17 04:05 Pulse 101 H 08/24/17 07:00 Resp 17 08/24/17 07:00 BP 138/78 08/24/17 07:00 Pulse Ox 95 08/24/17 07:00 Weight - Most Recent: 104.78 kg I&O - Last 24 Hours: Intake & Output 08/23/17 08/24/17 08/24/17 22:59 06:59 14:59 Intake Total 0 1800 Output Total 900 Balance 0 900 Lab Results - Last 24 Hours: Laboratory Results - last 24 hr 08/23/17 08/23/17 08/23/17 Range/Units 10:55 10:55 14:25 WBC 12.10 H (4.0-11.0) K/uL RBC 4.25 L (4.30-5.90) M/uL Hgb 12.9 (12.0-16.0) g/dL Hct 37.8 (36.0-46.0) % MCV 88.9 (80.0-98.0) fL MCH 30.4 (27.0-32.0) pg MCHC 34.1 (31.0-37.0) g/dL RDW Std Deviation 41.2 (28.0-62.0) fl RDW Coeff of Russel 13 (11.0-15.0) % Plt Count 274 (150-400) K/uL MPV 11.10 (7.40-12.00) fL Nucleated RBC % 0.0 /100WBC Nucleated RBCs # 0 K/uL Blood Type B NEGATIVE Antibody Screen NEGATIVE Screen NEGATIVE (NEGATIVE) RhIG Candidate? YES Rhogam Indicated YES, BABY RH POS H 08/24/17 Range/Units 05:21 WBC (4.0-11.0) K/uL RBC (4.30-5.90) M/uL Hgb 11.0 L (12.0-16.0) g/dL Hct 33.0 L (36.0-46.0) % MCV (80.0-98.0) fL MCH (27.0-32.0) pg MCHC (31.0-37.0) g/dL RDW Std Deviation (28.0-62.0) fl RDW Coeff of Russel (11.0-15.0) % Plt Count (150-400) K/uL MPV (7.40-12.00) fL Nucleated RBC % /100WBC Nucleated RBCs # K/uL Blood Type Antibody Screen Screen (NEGATIVE) RhIG Candidate? Rhogam Indicated Med Orders - Current: Current Medications Bisacodyl (Dulcolax) 10 mg RECTAL .ONCE PRN PRN Reason: Constipation Citric Acid/Sodium Citrate (Bicitra Solution) 30 ml PO .ONCE KATI Last Admin: 08/23/17 11:54 Dose: 30 ml Diphenhydramine HCl (Benadryl) 25 mg IVPUSH Q6H PRN PRN Reason: Itching or Nausea Docusate Sodium (Colace) 100 mg PO BID KATI Last Admin: 08/23/17 22:20 Dose: 100 mg Emollient Ointment (Lansinoh Hpa) 0 gm TOP ASDIRECTED PRN PRN Reason: Sore Nipples Fentanyl (Sublimaze) 50 mcg IVPUSH Q5M PRN PRN Reason: Pain (severe 7-10) Stop: 08/24/17 12:48 Lactated Ringer's (Ringers, Lactated) 1,000 mls @ 500 mls/hr IV .BOLUS KATI Last Admin: 08/23/17 11:38 Dose: 500 mls/hr Oxytocin/Sodium Chloride (Oxytocin 30 Unit/500 Ml-Ns) 30 unit in 500 mls @ 250 mls/hr IV TITRATE KATI Lactated Ringer's (Ringers, Lactated) 1,000 mls @ 125 mls/hr IV ASDIRECTED KATI Ibuprofen (Motrin) 800 mg PO Q8H PRN PRN Reason: mild pain or fever Ketorolac Tromethamine (Toradol) 30 mg IVPUSH Q6H KATI Stop: 08/24/17 13:01 Last Admin: 08/24/17 07:35 Dose: 30 mg Nalbuphine HCl (Nubain) 2.5 mg IVPUSH Q3H PRN PRN Reason: Pruritis Stop: 08/24/17 12:48 Last Admin: 08/24/17 07:38 Dose: 2.5 mg Ondansetron HCl (Zofran) 4 mg IV Q4H PRN PRN Reason: Nausea/Vomiting Oxycodone/Acetaminophen (Percocet 325-5 Mg) 1 tab PO ONETIME PRN PRN Reason: Pain (moderate 4-6) Oxycodone/Acetaminophen (Percocet 325-5 Mg) 1 tab PO Q4H PRN PRN Reason: Pain (moderate 4-6) Oxycodone/Acetaminophen (Percocet 325-5 Mg) 2 tab PO Q4H PRN PRN Reason: Pain (moderate 4-6) Sodium Chloride (Saline Flush) 10 ml FLUSH ASDIRECTED PRN PRN Reason: Keep Vein Open Sodium Chloride (Saline Flush) 2.5 ml FLUSH ASDIRECTED PRN PRN Reason: Keep Vein Open Discontinued Medications Cefazolin Sodium/Dextrose (Ancef) Confirm Administered Dose 2 gm IV .STK-MED ONE Stop: 08/23/17 11:36 Ephedrine Sulfate (Ephedrine Sulfate) Confirm Administered Dose 50 mg .ROUTE .STK-MED ONE Stop: 08/23/17 11:36 Fentanyl (Sublimaze) Confirm Administered Dose 100 mcg .ROUTE .STK-MED ONE Stop: 08/23/17 12:58 Cefazolin Sodium/Dextrose 2 gm (/ Premix) 50 mls @ 100 mls/hr IV ONETIME ONE Stop: 08/23/17 12:14 Last Admin: 08/23/17 14:55 Dose: Not Given Oxytocin/Sodium Chloride (Oxytocin 30 Unit/500 Ml-Ns) Confirm Administered Dose 30 unit in 500 mls @ as directed .ROUTE .STK-MED ONE Stop: 08/23/17 11:24 Last Admin: 08/23/17 14:55 Dose: Not Given Acetaminophen (Ofirmev) Confirm Administered Dose 100 mls @ as directed IV .STK- MED ONE Stop: 08/23/17 13:04 Morphine Sulfate (Duramorph Pf) Confirm Administered Dose 1 mg .ROUTE .STK-MED ONE Stop: 08/23/17 11:37 Octyl Cyanoacrylate (Dermabond Advance) Confirm Administered Dose 1 applic .ROUTE .STK-MED ONE Stop: 08/23/17 11:43 Ondansetron HCl (Zofran) Confirm Administered Dose 4 mg .ROUTE .STK-MED ONE Stop: 08/23/17 11:36 Phenylephrine HCl (Phenylephrine In Ns 100 Mcg/Ml) Confirm Administered Dose 1 mg .ROUTE .STK-MED ONE Stop: 08/23/17 12:23 - Interaction Disposition, : in Room with Family Infant Interaction: Holding Infant Feeding: Breastfed Infant; Nursed Well Support Person: Significant Other - Recovery Exam Fundal Tone: Firm Fundal Level: At Umbilicus Fundal Placement: Midline Lochia Amount: Scant Lochia Color: Rubra/Red Perineum Description: Intact, Minimal Bruising/Swelling Episiotomy/Laceration: Approximated Bladder Status: Indwelling Catheter in Place Urinary Elimination: Indwelling Catheter - Exam General: Alert, Oriented, Cooperative, No Acute Distress Lungs: Clear to Auscultation, Normal Respiratory Effort Cardiovascular: Regular Rate, Regular Rhythm GI/Abdominal Exam: Normal Bowel Sounds, Soft, Non-Tender, No Organomegaly, No Distention, No Abnormal Bruit, No Mass, Pelvis Stable Extremities: Normal Inspection, Normal Range of Motion, Non-Tender, No Pedal Edema, Normal Capillary Refill Skin: Warm, Dry, Intact Wound/Incisions: Healing Well, Dressing Dry and Intact Neurological: No New Focal Deficit, Normal Speech, Normal Tone Psy/Mental Status: Alert, Normal Affect, Normal Mood - Problem List & Annotations (1) Supervision of normal IUP (intrauterine ) in multigravida SNOMED Code(s): 127023284, 739969360, 696970360 Code(s): Z34.80 - ENCOUNTER FOR SUPRVSN OF NORMAL , UNSP TRIMESTER Status: Acute Priority: High Current Visit: Yes Qualifiers: Trimester: third trimester Qualified Code(s): Z34.83 - Encounter for supervision of other normal , third trimester (2) delivery delivered SNOMED Code(s): 263838506 Code(s): O82 - ENCOUNTER FOR DELIVERY WITHOUT INDICATION Status: Acute Priority: High Current Visit: Yes - Problem List Review Problem List Initiated/Reviewed/Updated: Yes - My Orders Last 24 Hours: My Active Orders 08/23/17 17:07 Consult to Physical Therapy [PT Evaluation and Treatment] [CONS] Routine - Plan Plan:: Tongue patient (39 Wks) is admitted for elective repeat section PP day 1 A: VSS, AF, Lochia small, incision dressing dry and intact, out of bed to bath and urinating. Breast feeding well, stable P: continue pp plan of care
[2017-08-24] MEDS: Docusate Sodium 100 MG Cap PO SCH ×2 (08:45→21:11)
--- NOTE | 2017-08-24 09:26 | OR ---
SURGEON: Vito Ortiz MD DATE OF PROCEDURE: 08/23/2017 PREOPERATIVE DIAGNOSES: 1. Intrauterine . 2. Previous section. 3. Breech presentation. POSTOPERATIVE DIAGNOSES: 1. Intrauterine . 2. Previous section. 3. Breech presentation. OPERATION PERFORMED: Elective repeat section. SOLDERING TECHNICIAN: Eveline Rodrigues, certified nurse retirement administrator. ANESTHESIA: Spinal by Farnaz Yadav and Dr. Azevedo. ESTIMATED BLOOD LOSS: 700 mL. COMPLICATIONS: None. FINDINGS: Female fetus was in footling breech presentation. Normal uterus, tubes, and ovaries. INDICATION: The patient is term 39+ weeks. She is followed in our office. She had previous section. She is breech presentation. She is admitted for elective repeat section. PROCEDURE IN DETAIL: The patient was brought to the OR, properly identified, and after taking time- out and adequate level of spinal anesthesia with a Marshall catheter in the bladder, the patient was prepped and draped in sterile fashion as usual. Low- transverse Pfannenstiel skin incision was done through the old scar. The Gianni's fascia and rectus fascia were opened in direction of the incision. The 2 recti muscles were . The peritoneal cavity was entered, and then low- transverse uterine incision was done and extended manually with the hand. Fetus was in a footling breech presentation, delivered without any problem. The placenta delivered spontaneous, complete, and intact. The fetus cried immediately, and later on, the scores were reported to be 7 and 9. Repair of the lower uterine segment was done with 2-0 Vicryl continuous interlocking in 2 layers. Re-peritonealization done with 3-0 Vicryl continuous. The peritoneal cavity evacuated completely from all blood and blood clot and closed with 3-0 Vicryl continuous, and the rectus fascia was closed with #1 PDS double strand continuous, the Gianni's fascia with 3-0 Vicryl continuous, and the skin closed with 3-0 Vicryl on a Alexander needle in a subcuticular fashion and Dermabond. Instrument and sponge count was correct. The patient tolerated the procedure well and went to recovery room in stable general condition. PATRICIA / NAE /[id number]
--- NOTE | 2017-08-24 13:17 | PCM48HPAN ---
Post Anesthesia Note - EVALUATION WITHIN 48HRS OF ANESTHETIC Vital Signs in Normal Range: Yes Patient Participated in Evaluation: Yes Respiratory Function Stable: Yes Airway Patent: Yes Cardiovascular Function Stable: Yes Hydration Status Stable: Yes Pain Control Satisfactory: Yes Nausea and Vomiting Control Satisfactory: Yes Mental Status Recovered: Yes Resp Rate: 17 Blood Pressure: 113/59 - COMMENTS/OBSERVATIONS Free Text/Narrative:: Pt awake and with no complaints of pain. Pt states she did have pruritis overnight, but the meds helped relieve the itching. No apparent anesthesia complications.
[2017-08-24] MEDS: Acetaminophen/oxyCODONE 325-5 MG Tab PO PRN ×2 (19:40→23:45)
[2017-08-24] MEDS: Ibuprofen 800 MG Tab PO PRN (23:13)
[2017-08-25] MEDS: Acetaminophen/oxyCODONE 325-5 MG Tab PO PRN (05:13)
[2017-08-25 05:21] VITALS: BP 119/77
--- NOTE | 2017-08-25 08:13 | PCM.DCSUM1 ---
Discharge Summary - Hospital Course Free Text/Narrative:: Discharge home with infant. Follow up in 10 days for incision check and 6 weeks for post . Come sooner if needed. - Discharge Data Discharge Date: 08/25/17 Discharge Disposition: Home, Self-Care 01 Condition: Good - Discharge Diagnosis/Problem(s) (1) Supervision of normal IUP (intrauterine ) in multigravida SNOMED Code(s): 036454822, 927901599, [id number] ICD Code: Z34.80 - ENCOUNTER FOR SUPRVSN OF NORMAL , UNSP TRIMESTER Status: Acute Priority: High Current Visit: Yes Qualifiers: Trimester: third trimester Qualified Code(s): Z34.83 - Encounter for supervision of other normal , third trimester (2) delivery delivered SNOMED Code(s): 815394156 ICD Code: O82 - ENCOUNTER FOR DELIVERY WITHOUT INDICATION Status: Acute Priority: High Current Visit: Yes - Patient Summary/Data Operative Procedure(s) Performed: Repeat C/Section Consults: Consultations 08/23/17 17:07 Consult to Physical Therapy [PT Evaluation and Treatment] [CONS] Routine 08/24/17 10:04 Consult to Occupational Therapy [OT Evaluation and Treatment] [CONS] Routine - Patient Instructions Diet: Usual Diet as Tolerated Activity: As Tolerated, No Strenuous Activities, Rest and Relax Today Showering/Bathing: May Shower Wound/Incision Care: Keep Operative Site/Wound Site Clean and Dry, Change Dressing Daily Notify Provider of: Fever, Increased Pain, Swelling and Redness, Drainage, Nausea and/or Vomiting Other/Special Instructions: Discharge home with infant. Follow up in 10 days for incision check and 6 weeks for post . Come sooner if needed. - Discharge Plan Home Medications: Home Meds Vits #93/Iron Fum/FA [ Formula Tablet] 1 cap PO DAILY 02/03/17 [History] risperiDONE [Risperdal] 0.5 mg PO BID 02/03/17 [History] Referrals: Vito Ortiz MD [Physician] - (2 week follow-up appointment with Dr. Ortiz on 09/06/17 at 9:30am. 6 week follow-up appointment with Dr. Ortiz on 10/04/17 at 1:30pm.) - General Info Date of Service: 08/25/17 Admission Dx/Problem (Free Text: Patient Status Order with Admit Dx/Problem 08/23/17 10:36 Patient Status [ADT] Routine Admission Diagnosis/Problem Admission Diagnosis/Problem - planned Functional Status: Reports: Pain Controlled, Tolerating Diet, Ambulating, Urinating - Review of Systems General: Reports: No Symptoms HEENT: Reports: No Symptoms Pulmonary: Reports: No Symptoms Cardiovascular: Reports: No Symptoms Gastrointestinal: Reports: No Symptoms Genitourinary: Reports: No Symptoms Musculoskeletal: Reports: No Symptoms Skin: Reports: No Symptoms Neurological: Reports: No Symptoms Psychiatric: Reports: No Symptoms - Patient Data Vitals - Most Recent: Last Vital Signs Temp 37.0 C 08/24/17 17:00 Pulse 105 H 08/25/17 05:20 Resp 15 08/25/17 05:20 BP 119/77 08/25/17 05:20 Pulse Ox 95 08/25/17 05:20 Weight - Most Recent: 104.78 kg Med Orders - Current: Current Medications Bisacodyl (Dulcolax) 10 mg RECTAL .ONCE PRN PRN Reason: Constipation Citric Acid/Sodium Citrate (Bicitra Solution) 30 ml PO .ONCE KATI Last Admin: 08/23/17 11:54 Dose: 30 ml Diphenhydramine HCl (Benadryl) 25 mg IVPUSH Q6H PRN PRN Reason: Itching or Nausea Docusate Sodium (Colace) 100 mg PO BID KATI Last Admin: 08/24/17 21:11 Dose: 100 mg Emollient Ointment (Lansinoh Hpa) 0 gm TOP ASDIRECTED PRN PRN Reason: Sore Nipples Lactated Ringer's (Ringers, Lactated) 1,000 mls @ 500 mls/hr IV .BOLUS [facility] Last Admin: 08/23/17 11:38 Dose: 500 mls/hr Oxytocin/Sodium Chloride (Oxytocin 30 Unit/500 Ml-Ns) 30 unit in 500 mls @ 250 mls/hr IV TITRATE KATI Lactated Ringer's (Ringers, Lactated) 1,000 mls @ 125 mls/hr IV ASDIRECTED KATI Ibuprofen (Motrin) 800 mg PO Q8H PRN PRN Reason: mild pain or fever Last Admin: 08/24/17 23:13 Dose: 800 mg Ondansetron HCl (Zofran) 4 mg IV Q4H PRN PRN Reason: Nausea/Vomiting Oxycodone/Acetaminophen (Percocet 325-5 Mg) 1 tab PO ONETIME PRN PRN Reason: Pain (moderate 4-6) Oxycodone/Acetaminophen (Percocet 325-5 Mg) 1 tab PO Q4H PRN PRN Reason: Pain (moderate 4-6) Last Admin: 08/25/17 05:13 Dose: 1 tab Oxycodone/Acetaminophen (Percocet 325-5 Mg) 2 tab PO Q4H PRN PRN Reason: Pain (moderate 4-6) Sodium Chloride (Saline Flush) 10 ml FLUSH ASDIRECTED PRN PRN Reason: Keep Vein Open Sodium Chloride (Saline Flush) 2.5 ml FLUSH ASDIRECTED PRN PRN Reason: Keep Vein Open Discontinued Medications Cefazolin Sodium/Dextrose (Ancef) Confirm Administered Dose 2 gm IV .STK-MED ONE Stop: 08/23/17 11:36 Ephedrine Sulfate (Ephedrine Sulfate) Confirm Administered Dose 50 mg .ROUTE .STK-MED ONE Stop: 08/23/17 11:36 Fentanyl (Sublimaze) 50 mcg IVPUSH Q5M PRN PRN Reason: Pain (severe 7-10) Stop: 08/24/17 12:48 Fentanyl (Sublimaze) Confirm Administered Dose 100 mcg .ROUTE .STK-MED ONE Stop: 08/23/17 12:58 Cefazolin Sodium/Dextrose 2 gm (/ Premix) 50 mls @ 100 mls/hr IV ONETIME ONE Stop: 08/23/17 12:14 Last Admin: 08/23/17 14:55 Dose: Not Given Oxytocin/Sodium Chloride (Oxytocin 30 Unit/500 Ml-Ns) Confirm Administered Dose 30 unit in 500 mls @ as directed .ROUTE .STK-MED ONE Stop: 08/23/17 11:24 Last Admin: 08/23/17 14:55 Dose: Not Given Acetaminophen (Ofirmev) Confirm Administered Dose 100 mls @ as directed IV .STK- MED ONE Stop: 08/23/17 13:04 Ketorolac Tromethamine (Toradol) 30 mg IVPUSH Q6H KATI Stop: 08/24/17 13:01 Last Admin: 08/24/17 14:15 Dose: 30 mg Morphine Sulfate (Duramorph Pf) Confirm Administered Dose 1 mg .ROUTE .STK-MED ONE Stop: 08/23/17 11:37 Nalbuphine HCl (Nubain) 2.5 mg IVPUSH Q3H PRN PRN Reason: Pruritis Stop: 08/24/17 12:48 Last Admin: 08/24/17 07:38 Dose: 2.5 mg Octyl Cyanoacrylate (Dermabond Advance) Confirm Administered Dose 1 applic .ROUTE .STK-MED ONE Stop: 08/23/17 11:43 Ondansetron HCl (Zofran) Confirm Administered Dose 4 mg .ROUTE .STK-MED ONE Stop: 08/23/17 11:36 Phenylephrine HCl (Phenylephrine In Ns 100 Mcg/Ml) Confirm Administered Dose 1 mg .ROUTE .STK-MED ONE Stop: 08/23/17 12:23 - Exam General: Reports: Alert, Oriented, Cooperative, No Acute Distress Lungs: Reports: Clear to Auscultation, Normal Respiratory Effort Cardiovascular: Reports: Regular Rate, Regular Rhythm, No Murmurs GI/Abdominal Exam: Normal Bowel Sounds, Soft, Non-Tender, No Organomegaly, No Distention, No Abnormal Bruit, No Mass, Pelvis Stable (Female) Exam: Vaginal Bleeding Rectal (Female) Exam: Deferred Back Exam: Reports: Full Range of Motion Extremities: Normal Inspection, Normal Range of Motion, Non-Tender, No Pedal Edema, Normal Capillary Refill Skin: Reports: Warm, Dry, Intact Wound/Incisions: Reports: Healing Well, No Drainage Neurological: Reports: No New Focal Deficit, Normal Speech, Normal Tone Psy/Mental Status: Reports: Alert, Normal Affect, Normal Mood
[2017-08-25] MEDS: Docusate Sodium 100 MG Cap PO SCH (09:40)
[2017-08-25] MEDS: Ibuprofen 800 MG Tab PO PRN (09:40)
== END 2017-08-25 09:45 | disposition home or self-care (01) | DRG 766 ==
LOC: MW.OB 09:38
PROVIDERS: ADMIT Obstetrics & Gynecology; ATTEND Obstetrics & Gynecology
PROC: 10D00Z1 Extraction of Products of Conception, Low, Open Approach (ICD-10-PCS; principal; 2017-08-23)
DX: O32.1XX0 Maternal care for breech presentation, not applicable or unspecified (principal); Z3A.39 39 weeks gestation of pregnancy; Z37.0 Single live birth
CPT/HCPCS: 01961; 36415; 59025; 85014; 85018; 85027; 85460; 86850; 86900; 86901; 97161-GP; 97165-GO; A9270-GY; J0690; J1885; J2274; J2300; J2405; J2790; J3010; J7120

== ENCOUNTER 2017-08-27 18:07 | Emergency (ER) | payer MEDICAID ==
--- NOTE | 2017-08-27 20:31 | EDM.PDOC ---
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 Review of systems: As per history of present illness and below otherwise all systems reviewed and negative. Past medical history: As per history of present illness and as reviewed below otherwise noncontributory. Surgical history: As per history of present illness and as reviewed below otherwise noncontributory. Social history: No reported history of drug or alcohol abuse. Family history: As per history of present illness and as reviewed below otherwise noncontributory. Physical exam: HEENT: Atraumatic, normocephalic, pupils reactive, negative for conjunctival pallor or scleral icterus, mucous membranes moist, throat clear, neck supple, nontender, trachea midline. Lungs: Clear to auscultation, breath sounds equal bilaterally, chest nontender. Heart: S1S2, regular, negative for clicks, rubs, or JVD. Abdomen: Soft, nondistended, nontender. Negative for masses or hepatosplenomegaly. Negative for costovertebral tenderness. Incision healing well with no evidence of infection and no bleeding. Pelvis: Stable nontender. Genitourinary: Deferred. Rectal: Deferred. Extremities: Atraumatic, negative for cords or calf pain. Neurovascular unremarkable. Neuro: Awake, alert, oriented. Cranial nerves II through XII unremarkable. Cerebellum unremarkable. Motor and sensory unremarkable throughout. Exam nonfocal. Diagnostics: None Therapeutics: None Impression: #1 medical screening exam #2 observation status post #3 history of incisional bleeding Definitive disposition and diagnosis as appropriate pending reevaluation and review of above. Incision site Pain Score (Numeric/FACES): 10 - Related Data Allergies Allergy/AdvReac Type Severity Reaction Status Date / Time acetaminophen [From Vicodin] Allergy Itching Verified 08/27/17 19:59 hydrocodone [From Vicodin] Allergy Itching Verified 08/27/17 19:59 Home Meds: Home Meds Vits #93/Iron Fum/FA [ Formula Tablet] 1 cap PO DAILY 02/03/17 [History] Acetaminophen/oxyCODONE [Percocet 325-5 MG] 1 each PO DAILY 08/27/17 [History] Past Medical History - Past Health History Medical/Surgical History: Denies Medical/Surgical History HEENT History: Reports: None Respiratory History: Reports: None Gastrointestinal History: Reports: GERD Genitourinary History: Reports: None 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: , Other (See Below) Other OB/BYN History: Musculoskeletal History: Reports: Arthritis, Back Pain, Chronic Psychiatric History: Reports: Anxiety, Bipolar, Depression Endocrine/Metabolic History: Reports: Obesity/BMI 30+ - Infectious Disease History Infectious Disease History: Reports: Chicken Pox - Past Surgical History Head Surgeries/Procedures: Reports: None HEENT Surgical History: Reports: Tonsillectomy Female Surgical History: Reports: Section Social & Family History - Family History Family Medical History: Noncontributory HEENT: Reports: Impaired Vision OBGYN: Reports: - Tobacco Use Smoking Status *Q: Former Smoker Years of Tobacco use: 15 Packs/Tins Daily: 0.5 Used Tobacco, but Quit: Yes Month/Year Tobacco Last Used: 07/16 Second Hand Smoke Exposure: Yes - Caffeine Use Caffeine Use: Reports: Coffee, Soda, Tea - Recreational Drug Use Recreational Drug Use: Yes Drug Use in Last 12 Months: Yes Recreational Drug Type: Reports: Marijuana/Hashish Recreational Drug Use Frequency: Not Used In Over 2 Months Recreational Drug Last Use: 06/20/2017 ED ROS GENERAL - Review of Systems Review Of Systems: ROS reveals no pertinent complaints other than HPI. ED EXAM, GENERAL - Physical Exam Exam: See Below (See dictation) Course - Vital Signs Last Recorded V/S: Last Vital Signs Temp 37.3 C 08/27/17 19:47 Pulse 92 08/27/17 19:47 Resp 12 08/27/17 19:47 BP 135/79 08/27/17 19:47 Pulse Ox 97 08/27/17 19:47 Departure - Departure Time of Disposition: 20:30 Disposition: Home, Self-Care 01 Condition: Good Clinical Impression: Encounter for medical screening examination - Discharge Information Referrals: PCP,None [Primary Care Provider] - Additional Instructions: The following information is given to patients seen in the emergency department who are being discharged to home. This information is to outline your options for follow-up care. We provide all patients seen in our emergency department with a follow-up referral. The need for follow-up, as well as the timing and circumstances, are variable depending upon the specifics of your emergency department visit. If you don't have a primary care physician on staff, we will provide you with a referral. We always advise you to contact your personal physician following an emergency department visit to inform them of the circumstance of the visit and for follow-up with them and/or the need for any referrals to a consulting specialist. The emergency department will also refer you to a specialist when appropriate. This referral assures that you have the opportunity for followup care with a specialist. All of these measure are taken in an effort to provide you with optimal care, which includes your followup. Under all circumstances we always encourage you to contact your private physician who remains a resource for coordinating your care. When calling for followup care, please make the office aware that this follow-up is from your recent emergency room visit. If for any reason you are refused follow-up, please contact the [facility] emergency department at and asked to speak to the emergency department charge nurse. Keep routine appointment and follow-up with METAL FURRER he return as needed as discussed
[2017-08-27 21:15] VITALS: BP 139/86
== END 2017-08-27 20:31 | disposition home or self-care (01) ==
LOC: MW.ED 18:07
DX: Z39.2 Encounter for routine postpartum follow-up (principal); Z88.6 Allergy status to analgesic agent; Z88.5 Allergy status to narcotic agent; Z87.891 Personal history of nicotine dependence
CPT/HCPCS: 99282; 99283

== ENCOUNTER 2017-08-30 20:03 | Emergency (ER) | payer MEDICAID ==
--- NOTE | 2017-08-30 20:53 | EDM.PDOC ---
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 She hadn't had a 7 days ago which went well. Over the past few days she has noticed some tenderness, mild erythema and drainage coming from the site. He is concerned that this is infected and is going to require some oral antibiotics. Does have some minimal vaginal bleeding every (not concerned, states is normal) . Denies any fever, chills, chest pain or shortness of breath. Denies any abdominal pain, nausea, vomiting, diarrhea or constipation. Primary OBGYN is Dr Ortiz; has appointment with him in the next couple days. Review of systems: As per history of present illness and below otherwise all systems reviewed and negative. Past medical history: As per history of present illness and as reviewed below otherwise noncontributory. Surgical history: As per history of present illness and as reviewed below otherwise noncontributory. Social history: No reported history of drug or alcohol abuse. Family history: As per history of present illness and as reviewed below otherwise noncontributory. Physical exam: General: Well-developed and well-nourished 31-year-old female. Nontoxic appearing and no acute distress. HEENT: Atraumatic, normocephalic, pupils equal and reactive bilaterally, negative for conjunctival pallor or scleral icterus, mucous membranes moist, throat clear, neck supple, nontender, trachea midline. No drooling or trismus noted. No meningeal signs Lungs: Clear to auscultation, breath sounds equal bilaterally, chest nontender. Heart: S1S2, regular rate and rhythm without overt murmur Abdomen: Soft, nondistended, obese, nontender. Negative for masses or hepatosplenomegaly. Negative for costovertebral tenderness. Pelvis: Stable nontender. Genitourinary: Deferred. Rectal: Deferred. Skin: Linear incision noted along the low abdomen with mild erythema noted along the edges. Incision is able to be opened and some light yellow/green drainage. Otherwise skin is intact, warm, dry. No lesions or rashes noted. Extremities: Atraumatic, moves all per self, negative for cords or calf pain. Neurovascular unremarkable. Neuro: Awake, alert, oriented. Cranial nerves II through XII unremarkable. Cerebellum unremarkable. Motor and sensory unremarkable throughout. Exam nonfocal. Notes: Will get a CBC and wound culture of the patient. Will prescribe Bactrim DS. Patient states she does have Tylenol and Motrin along with Percocet available to her if needed for pain management. I encouraged her to inform Dr. Ortiz of her visit here today and being placed on antibiotics. She voices understanding and is agreeable to plan of care. Will follow up with OBGYN within the next few days. Diagnostics: CBC, Wound culture Therapeutics: Wound care, dressing Impression: Post operative skin infection Plan: 1. Please take your antibiotic as directed. Tylenol as needed for pain management. 2. Continue to monitor for worsening signs of infection. The area clean and dry. 3. Inform Dr. Ortiz of your visit here today, and being placed on antibiotics. Follow up within the next couple days. Return to the ED as needed and as discussed. Definitive disposition and diagnosis as appropriate pending reevaluation and review of above. Duration: Day(s): Location: Reports: Abdomen - Related Data Allergies Allergy/AdvReac Type Severity Reaction Status Date / Time acetaminophen [From Vicodin] Allergy Itching Verified 08/30/17 20:09 hydrocodone [From Vicodin] Allergy Itching Verified 08/30/17 20:09 Home Meds: Home Meds Vits #93/Iron Fum/FA [ Formula Tablet] 1 cap PO DAILY 02/03/17 [History] Acetaminophen/oxyCODONE [Percocet 325-5 MG] 1 each PO DAILY 08/27/17 [History] Past Medical History - Past Health History Medical/Surgical History: Denies Medical/Surgical History HEENT History: Reports: None Cardiovascular History: Reports: None Respiratory History: Reports: None Gastrointestinal History: Reports: GERD Genitourinary History: Reports: None 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: , 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 (See Below) Other OB/BYN History: Musculoskeletal History: Reports: Arthritis, Back Pain, Chronic Neurological History: Reports: None Psychiatric History: Reports: Anxiety, Bipolar, Depression Endocrine/Metabolic History: Reports: Obesity/BMI 30+ Hematologic History: Reports: None Dermatologic History: Reports: None - Infectious Disease History Infectious Disease History: Reports: Chicken Pox - Past Surgical History Head Surgeries/Procedures: Reports: None HEENT Surgical History: Reports: Tonsillectomy Female Surgical History: Reports: Section Social & Family History - Family History Family Medical History: Noncontributory HEENT: Reports: Impaired Vision OBGYN: Reports: - Tobacco Use Smoking Status *Q: Former Smoker Years of Tobacco use: 15 Packs/Tins Daily: 0.5 Used Tobacco, but Quit: Yes Month/Year Tobacco Last Used: 07/16 Second Hand Smoke Exposure: Yes - Caffeine Use Caffeine Use: Reports: Coffee, Soda, Tea - Recreational Drug Use Recreational Drug Use: No Drug Use in Last 12 Months: Yes Recreational Drug Type: Reports: Marijuana/Hashish Recreational Drug Use Frequency: Not Used In Over 2 Months Recreational Drug Last Use: 06/20/2017 ED ROS GENERAL - Review of Systems Review Of Systems: ROS reveals no pertinent complaints other than HPI. ED EXAM, GI/ABD - Physical Exam Exam: See Below (See dictation) Course - Vital Signs Last Recorded V/S: Last Vital Signs Temp 97.6 F 08/30/17 20:10 Pulse 105 H 08/30/17 20:10 Resp 16 08/30/17 20:10 BP 142/77 H 08/30/17 20:10 Pulse Ox 97 08/30/17 20:10 - Orders/Labs/Meds Orders: Active Orders 24 hr Category Date Time Status CULTURE WOUND [RM] Stat Lab 08/30/17 20:54 Ordered Labs: Laboratory Tests 08/30/17 Range/Units 20:30 WBC 13.14 H (4.0-11.0) K/uL RBC 4.02 L (4.30-5.90) M/uL Hgb 12.2 (12.0-16.0) g/dL Hct 36.1 (36.0-46.0) % MCV 89.8 (80.0-98.0) fL MCH 30.3 (27.0-32.0) pg MCHC 33.8 (31.0-37.0) g/dL RDW Std Deviation 40.7 (28.0-62.0) fl RDW Coeff of Russel 13 (11.0-15.0) % Plt Count 364 (150-400) K/uL MPV 9.50 (7.40-12.00) fL Neut % (Auto) 75.8 (48.0-80.0) % Lymph % (Auto) 17.5 (16.0-40.0) % [place] % (Auto) 5.0 (0.0-15.0) % Eos % (Auto) 1.4 (0.0-7.0) % Baso % (Auto) 0.3 (0.0-1.5) % Neut # (Auto) 10.0 H (1.4-5.7) K/uL Lymph # (Auto) 2.3 (0.6-2.4) K/uL [place] # (Auto) 0.7 (0.0-0.8) K/uL Eos # (Auto) 0.2 (0.0-0.7) K/uL Baso # (Auto) 0.0 (0.0-0.1) K/uL Nucleated RBC % 0.0 /100WBC Nucleated RBCs # 0 K/uL Departure - Departure Time of Disposition: 20:58 Disposition: Home, Self-Care 01 Clinical Impression: Post-operative infection Qualifiers: Encounter type: initial encounter Qualified Code(s): T81.4XXA - Infection following a procedure, initial encounter - Discharge Information Referrals: PCP,None [Primary Care Provider] - Forms: ED Department Discharge Additional Instructions: The following information is given to patients seen in the emergency department who are being discharged to home. This information is to outline your options for follow-up care. We provide all patients seen in our emergency department with a follow-up referral. The need for follow-up, as well as the timing and circumstances, are variable depending upon the specifics of your emergency department visit. If you don't have a primary care physician on staff, we will provide you with a referral. We always advise you to contact your personal physician following an emergency department visit to inform them of the circumstance of the visit and for follow-up with them and/or the need for any referrals to a consulting specialist. The emergency department will also refer you to a specialist when appropriate. This referral assures that you have the opportunity for follow-up care with a specialist. All of these measure are taken in an effort to provide you with optimal care, which includes your follow-up. Under all circumstances we always encourage you to contact your private physician who remains a resource for coordinating your care. When calling for follow-up care, please make the office aware that this follow-up is from your recent emergency room visit. If for any reason you are refused follow-up, please contact the [facility] Emergency Department at and asked to speak to the emergency department charge nurse. [facility]: Dr Ortiz [address] [place] [id number] 1. Please take your antibiotic as directed. Tylenol as needed for pain management. 2. Continue to monitor for worsening signs of infection. The area clean and dry. 3. Inform Dr. Ortiz of your visit here today, and being placed on antibiotics. Follow up within the next couple days. Return to the ED as needed and as discussed. - My Orders Last 24 Hours: My Active Orders 08/30/17 20:54 CULTURE WOUND [RM] Stat - Assessment/Plan Last 24 Hours: My Active Orders 08/30/17 20:54 CULTURE WOUND [RM] Stat
[2017-08-30 22:47] VITALS: BP 122/68
== END 2017-08-30 21:25 | disposition home or self-care (01) ==
LOC: MW.ED 20:03
DX: O86.0 Infection of obstetric surgical wound (principal); O99.63 Diseases of the digestive system complicating the puerperium; K21.9 Gastro-esophageal reflux disease without esophagitis; O99.345 Other mental disorders complicating the puerperium; F31.9 Bipolar disorder, unspecified; F41.9 Anxiety disorder, unspecified; O99.215 Obesity complicating the puerperium; E66.9 Obesity, unspecified; Z88.5 Allergy status to narcotic agent; Z88.8 Allergy status to other drugs, medicaments and biological substances; Z79.899 Other long term (current) drug therapy; Z87.891 Personal history of nicotine dependence; Z68.38 Body mass index [BMI] 38.0-38.9, adult
CPT/HCPCS: 36415; 85025; 87070; 87077; 87186; 99283

== ENCOUNTER 2019-04-08 12:13 | Emergency (ER) | payer MEDICAID ==
--- NOTE | 2019-04-08 13:03 | EDM.PDOC ---
ED HPI GENERAL MEDICAL PROBLEM - General Chief Complaint: General Stated Complaint: CHEST PAINS Time Seen by Provider: 04/08/19 12:14 Source of Information: Reports: Patient History Limitations: Reports: No Limitations - History of Present Illness INITIAL COMMENTS - FREE TEXT/NARRATIVE: HISTORY AND PHYSICAL: History of present illness: Patient is a 33-year-old female who presents to the ED today with concern of bilateral hand tingling and numbness sensation over the past several months. 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 Patient states that slowly is become more constant. Patient denies any trauma or injury to her hands. Patient states she also has been having chest pain over the past several months but has not had chest pain in the past 5 days. Patient states she did set up an appointment with the clinic but was instructed to come in and be seen and evaluated in the ED. Patient denies fever, chills, chest pain, shortness of breath, or cough. Denies headache, neck stiff ness, change in vision, syncope, or near syncope. Denies nausea, vomiting, abdominal pain, diarrhea, constipation, or dysuria. Has not noted any blood in urine or stool. Patient has been eating and drinking appropriately. Review of systems: As per history of present illness and below otherwise all systems reviewed and negative. Past medical history: As per history of present illness and as reviewed below otherwise noncontributory. Surgical history: As per history of present illness and as reviewed below otherwise noncontributory. Social history: See social history for further information Family history: As per history of present illness and as reviewed below otherwise noncontributory. Physical exam: General: Patient is alert, oriented, and in no acute distress. Patient sitting comfortably on exam table. HEENT: Atraumatic, normocephalic, pupils equal and reactive bilaterally, negative for conjunctival pallor or scleral icterus, mucous membranes moist, TMs normal bilaterally, throat clear, neck supple, nontender, trachea midline. No drooling or trismus noted. No meningeal signs. No hot potato voice noted. Lungs: Clear to auscultation, breath sounds equal bilaterally, chest nontender. Heart: S1S2, regular rate and rhythm without overt murmur Abdomen: Soft, nondistended, nontender. Negative for masses or hepatosplenomegaly. Negative for costovertebral tenderness. Pelvis: Stable nontender. Genitourinary: Deferred. Rectal: Deferred. Skin: Intact, warm, dry. No lesions or rashes noted. Extremities: Atraumatic, negative for cords or calf pain. Neurovascular unremarkable. Positive Phalen but negative Tinel sign. Patient has full sensation of bilateral hands to light touch. Radial pulses are grossly intact bilaterally with capillary refill less than 2 seconds. Neuro: Awake, alert, oriented. Cranial nerves II through XII unremarkable. Cerebellum unremarkable. Motor and sensory unremarkable throughout. Exam nonfocal. Notes: Patient states she does have a follow-up appointment this coming . Discussed the importance for keeping this appointment and follow-up with her primary care provider. Voices understanding and is agreeable to plan of care. Denies any further questions or concerns at this time. Diagnostics: CBC, CMP, UA, EKG, Uhcg, CXR, Troponin Therapeutics: None Prescription: None Impression: Carpal tunnel, bilateral Medical screening exam H/O chest pain Plan: 1. You can alternate ibuprofen and Tylenol as directed for pain and discomfort. 2. Follow-up with your primary care provider as scheduled and as discussed. Return to the ED as needed and as discussed. Definitive disposition and diagnosis as appropriate pending reevaluation and review of above. - Related Data Allergies Allergy/AdvReac Type Severity Reaction Status Date / Time acetaminophen [From Vicodin] Allergy Itching Verified 04/08/19 12:34 hydrocodone [From Vicodin] Allergy Itching Verified 04/08/19 12:34 Home Meds: Home Meds . 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: , Other (See Below) Other HAIRSPRING INSPECTOR History: Musculoskeletal History: Reports: Arthritis, Back Pain, Chronic Neurological History: Reports: None Psychiatric History: Reports: Anxiety, Bipolar, Depression Endocrine/Metabolic History: Reports: Obesity/BMI 30+ Hematologic History: Reports: None Immunologic History: Reports: None Oncologic (Cancer) History: Reports: None Dermatologic History: Reports: None - Infectious Disease History Infectious Disease History: Reports: Chicken Pox - Past Surgical History Head Surgeries/Procedures: Reports: None HEENT Surgical History: Reports: Tonsillectomy Female Surgical History: Reports: Section Social & Family History - Family History Family Medical History: Noncontributory HEENT: Reports: Impaired Vision OBGYN: Reports: - Tobacco Use Smoking Status *Q: Current Every Day Smoker Years of Tobacco use: 9 Packs/Tins Daily: 0.2 - Caffeine Use Caffeine Use: Reports: Coffee, Soda - Recreational Drug Use Recreational Drug Use: No ED ROS GENERAL - Review of Systems Review Of Systems: Comprehensive ROS is negative, except as noted in HPI. ED EXAM, GENERAL - Physical Exam Exam: See Below (see dictation) Course - Vital Signs Last Recorded V/S: Last Vital Signs Temp 96.7 F 04/08/19 12:32 Pulse 87 04/08/19 12:32 Resp 18 04/08/19 12:32 BP 121/85 04/08/19 12:32 Pulse Ox 97 04/08/19 12:32 - Orders/Labs/Meds Orders: Active Orders 24 hr Category Date Time Status EKG Documentation Completion [RC] STAT Care 04/08/19 12:20 Active UA RFX DAVINA AND CULT IF INDIC [URIN] Stat Lab 04/08/19 12:49 Ordered Labs: Laboratory Tests 04/08/19 04/08/19 04/08/19 Range/Units 12:58 12:58 12:58 WBC 9.95 (4.0-11.0) K/uL RBC 4.87 (4.30-5.90) M/uL Hgb 14.2 (12.0-16.0) g/dL Hct 42.3 (36.0-46.0) % MCV 86.9 (80.0-98.0) fL MCH 29.2 (27.0-32.0) pg MCHC 33.6 (31.0-37.0) g/dL RDW Std Deviation 40.8 (28.0-62.0) fl RDW Coeff of Russel 13 (11.0-15.0) % Plt Count 291 (150-400) K/uL MPV 10.50 (7.40-12.00) fL Neut % (Auto) 67.8 (48.0-80.0) % Lymph % (Auto) 26.4 (16.0-40.0) % [place] % (Auto) 4.4 (0.0-15.0) % Eos % (Auto) 1.0 (0.0-7.0) % Baso % (Auto) 0.4 (0.0-1.5) % Neut # (Auto) 6.7 H (1.4-5.7) K/uL Lymph # (Auto) 2.6 H (0.6-2.4) K/uL [place] # (Auto) 0.4 (0.0-0.8) K/uL Eos # (Auto) 0.1 (0.0-0.7) K/uL Baso # (Auto) 0.0 (0.0-0.1) K/uL Nucleated RBC % 0.0 /100WBC Nucleated RBCs # 0 K/uL Sodium 142 (136-145) mmol/L Potassium 3.9 (3.5-5.1) mmol/L Chloride 106 (98-107) mmol/L Carbon Dioxide 28.5 (21.0-32.0) mmol/L BUN 12 (7.0-18.0) mg/dL Creatinine 1.0 (0.6-1.0) mg/dL Est Cr Clr Drug Dosing 69.74 mL/min Estimated GFR (MDRD) > 60.0 ml/min Glucose 105 (74-106) mg/dL Calcium 8.5 (8.5-10.1) mg/dL Total Bilirubin 0.3 (0.2-1.0) mg/dL AST 18 (15-37) IU/L ALT 43 (14-63) IU/L Alkaline Phosphatase 76 (46-116) U/L Troponin I < 0.050 (0.000-0.056) ng/mL Total Protein 7.0 (6.4-8.2) g/dL Albumin 3.6 (3.4-5.0) g/dL Globulin 3.4 (2.6-4.0) g/dL Albumin/Globulin Ratio 1.1 (0.9-1.6) Lipase 133 (73-393) U/L HCG, Qual NEGATIVE (NEG) Departure - Departure Time of Disposition: 14:15 Disposition: Home, Self-Care 01 Clinical Impression: History of chest pain, Encounter for medical screening examination Carpal tunnel syndrome Qualifiers: Laterality: bilateral Qualified Code(s): G56.03 - Carpal tunnel syndrome, bilateral upper limbs - Discharge Information Referrals: PCP,None [Primary Care Provider] - Forms: ED Department Discharge Additional Instructions: The following information is given to patients seen in the emergency department who are being discharged to home. This information is to outline your options for follow-up care. We provide all patients seen in our emergency department with a follow-up referral. The need for follow-up, as well as the timing and circumstances, are variable depending upon the specifics of your emergency department visit. If you don't have a primary care physician on staff, we will provide you with a referral. We always advise you to contact your personal physician following an emergency department visit to inform them of the circumstance of the visit and for follow-up with them and/or the need for any referrals to a consulting specialist. The emergency department will also refer you to a specialist when appropriate. This referral assures that you have the opportunity for follow-up care with a specialist. All of these measure are taken in an effort to provide you with optimal care, which includes your follow-up. Under all circumstances we always encourage you to contact your private physician who remains a resource for coordinating your care. When calling for follow-up care, please make the office aware that this follow-up is from your recent emergency room visit. If for any reason you are refused follow-up, please contact the [facility] Emergency Department at and asked to speak to the emergency department charge nurse. [facility] Primary Care [address] [place] [id number] [address] [address] 1. You can alternate ibuprofen and Tylenol as directed for pain and discomfort. 2. Follow-up with your primary care provider as scheduled and as discussed. Return to the ED as needed and as discussed. - My Orders Last 24 Hours: My Active Orders 04/08/19 12:20 EKG Documentation Completion [RC] STAT 04/08/19 12:49 UA RFX DAVINA AND CULT IF INDIC [URIN] Stat - Assessment/Plan Last 24 Hours: My Active Orders 04/08/19 12:20 EKG Documentation Completion [RC] STAT 04/08/19 12:49 UA RFX DAVINA AND CULT IF INDIC [URIN] Stat
[2019-04-08 13:40] LABS: BLOOD UREA NITROGEN,BUN 12 mg/dL (7.0-18.0); CARBON DIOXIDE,CO2 28.5 mmol/L (21.0-32.0); CHLORIDE,CL 106 mmol/L (98-107); GLUCOSE RANDOM 105 mg/dL (74-106); LIPASE 133 U/L (73-393); POTASSIUM,K 3.9 mmol/L (3.5-5.1); SODIUM,NA 142 mmol/L (136-145)
--- NOTE | 2019-04-08 14:13 | CR ---
Chest: Portable view of the chest was obtained. Comparison: No prior chest x-ray. Heart size and mediastinum are normal. Lungs are clear. Bony structures are grossly intact. Impression: Nothing acute is seen on portable chest x-ray. Diagnostic code #1 This report was dictated in [place] Standard Time MTDD
[2019-04-08 14:39] VITALS: BP 138/79; PULSE 71
== END 2019-04-08 14:41 | disposition home or self-care (01) ==
LOC: MW.ED 12:13
DX: Z00.01 Encounter for general adult medical examination with abnormal findings (principal); G56.03 Carpal tunnel syndrome, bilateral upper limbs; F17.210 Nicotine dependence, cigarettes, uncomplicated; E66.9 Obesity, unspecified; Z68.41 Body mass index [BMI] 40.0-44.9, adult; Z87.898 Personal history of other specified conditions; Z88.6 Allergy status to analgesic agent; Z88.5 Allergy status to narcotic agent
CPT/HCPCS: 36415; 71045; 71045-26; 80053; 83690; 84484; 84703; 85025; 93005; 99282; 99284-25

== ENCOUNTER 2021-11-23 04:43 | Emergency (ER) | payer BC ==
[2021-11-23] MEDS ORDERED: Dexamethasone 10 MG/ML SDV IM ONE (05:34)
[2021-11-23] MEDS ORDERED: Morphine 4 MG/ML VIAL IVPUSH STA (05:35)
[2021-11-23] MEDS ORDERED: Cyclobenzaprine 10 MG Tab PO ONE (05:35)
[2021-11-23 05:59] VITALS: BP 138/78; PULSE 71
== END 2021-11-23 05:58 | disposition home or self-care (01) ==
LOC: MW.ED 04:43
DX: M54.50 Low back pain, unspecified (principal); E66.9 Obesity, unspecified; Z68.36 Body mass index [BMI] 36.0-36.9, adult; Z88.5 Allergy status to narcotic agent; Z88.8 Allergy status to other drugs, medicaments and biological substances
CPT/HCPCS: 81001; 81025; 96372; 96374; 99283; A9270; J1100; J2270